=== PATIENT | female | born 1930 | race Caucasian/White ===

== ENCOUNTER 2017-03-26 15:38 | Emergency (ER) | payer MEDICARE, MEDICAID ==
--- NOTE | 2017-03-26 15:40 | EDM.PDOC ---
ED HPI GENERAL MEDICAL PROBLEM - General Chief Complaint: Neurological Problem Stated Complaint: POSS STROKE, HEART ATTACK, [id number] Time Seen by Provider: 03/26/17 15:39 Source of Information: Reports: Patient, Family, RN, RN Notes Reviewed History Limitations: Reports: Altered Mental Status - History of Present Illness INITIAL COMMENTS - FREE TEXT/NARRATIVE: Arrives by POV with onset of chest pain as she was riding in the car with her travelling from their home in [place] to an event in [place] when patient developed chest pain with a headache and generalized weakness. Describes the pain as a pressure. Rates pain 6/10. Nothing makes the pain better or worse. Pain radiates to the bilateral neck and left shoulder. Admits to mild nausea and slight shortness of breath. Denies edema, rapid heart rate or palpations. Quality: Reports: Ache Severity: Severe Improves with: Reports: None Worsens with: Reports: None Associated Symptoms: Reports: No Other Symptoms - Related Data Allergies Allergy/AdvReac Type Severity Reaction Status Date / Time codeine AdvReac Mild Vomiting Verified 03/26/17 16:57 oxycodone AdvReac Mild Vomiting Verified 03/26/17 16:57 Penicillins AdvReac Mild Vomiting Verified 03/26/17 16:57 Home Meds: Home Meds . [Unable to Verify Home Med List] 03/26/17 [History] Past Medical History Cardiovascular History: Reports: CAD, [place] Neurological History: Reports: CVA - Past Surgical History Cardiovascular Surgical History: Reports: Carotid Stents ED ROS GENERAL - Review of Systems Review Of Systems: ROS reveals no pertinent complaints other than HPI. ED EXAM, GENERAL - Physical Exam Exam: See Below Exam Limited By: No Limitations General Appearance: Other (elderly, chronically ill appearing.) Eye Exam: Bilateral Eye: Normal Inspection Ears: Normal External Exam, Normal Canal, Hearing Grossly Normal, Normal TMs Nose: Normal Inspection, Normal Mucosa, No Blood Throat/Mouth: Normal Inspection, Normal Lips, Normal Teeth, Normal Gums, Normal Oropharynx, Normal Voice, No Airway Compromise Head: Atraumatic, Normocephalic Neck: Normal Inspection, Supple, Non-Tender, Full Range of Motion Respiratory/Chest: No Respiratory Distress, Lungs Clear, Normal Breath Sounds, No Accessory Muscle Use, Chest Non-Tender Cardiovascular: Normal Peripheral Pulses, Regular Rate, Rhythm, No Edema, No Gallop, No JVD, No Murmur, No Rub GI/Abdominal: Normal Bowel Sounds, Soft, Non-Tender, No Organomegaly, No Distention, No Abnormal Bruit, No Mass (Female) Exam: Deferred Rectal (Female) Exam: Deferred Back Exam: Normal Inspection, Full Range of Motion, NT Extremities: Normal Inspection, Normal Range of Motion, Non-Tender, Normal Capillary Refill, No Pedal Edema Neurological: No Motor/Sensory Deficits, Other (generalized weakness.) Psychiatric: Normal Affect, Normal Mood Skin Exam: Warm, Dry, Intact, Normal Color, No Rash EKG INTERPRETATION EKG Date: 03/26/17 Time: 15:56 Rhythm: Other (sinus rhythm) Rate (Beats/Min): 66 [place]: Normal P-Wave: Present QRS: Other (Q waves in inferior leads ol.) ST-T: Normal QT: Normal Course - Vital Signs Last Recorded V/S: Last Vital Signs Temp 36.1 C 03/26/17 15:38 Pulse 66 03/26/17 15:38 Resp 20 03/26/17 15:38 BP 101/60 03/26/17 15:38 Pulse Ox 94 L 03/26/17 15:38 - Orders/Labs/Meds Labs: Laboratory Tests 03/26/17 03/26/17 03/26/17 Range/Units 15:37 15:57 15:57 WBC 9.9 (5.0-10.0) 10^3/uL RBC 5.08 (4.2-5.4) 10^6/uL Hgb 14.8 (12.0-16.0) g/dL Hct 44.0 (37.0-47.0) % MCV 86.6 (80-100) fL MCH 29.1 (27.0-34.0) pg MCHC 33.6 (33.0-35.0) g/dL Plt Count 220 (150-450) 10^3/uL Neut % (Auto) 58.1 (42.2-75.2) % Lymph % (Auto) 30.7 (20.5-50.1) % [place] % (Auto) 8.5 H (2-8) % Eos % (Auto) 2.3 (1.0-3.0) % Baso % (Auto) 0.4 (0.0-1.0) % PT 10.5 (9.0-12.0) SEC INR 1.0 (0.9-1.2) APTT 22.9 (22.0-34.0) SEC Sodium (135-145) mmol/L Potassium (3.6-5.0) mmol/L Chloride (101-111) mmol/L Carbon Dioxide (21.0-31.0) mmol/L Anion Gap BUN (7-18) mg/dL Creatinine (0.6-1.3) mg/dL Est Cr Clr Drug Dosing mL/min Estimated GFR (MDRD) BUN/Creatinine Ratio Glucose (74-105) mg/dL POC Glucose 148 H (83-110) mg/dl Calcium (8.4-10.2) mg/dl Total Bilirubin (0.2-1.0) mg/dL AST (10-42) IU/L ALT (10-60) IU/L Alkaline Phosphatase (42-121) IU/L Troponin I (0.00-0.02) ng/ml B-Natriuretic Peptide (0-100) pg/ml Total Protein (6.7-8.2) g/dl Albumin (3.2-5.5) g/dl Globulin Albumin/Globulin Ratio Ethyl Alcohol mg/dL 03/26/17 Range/Units 15:57 WBC (5.0-10.0) 10^3/uL RBC (4.2-5.4) 10^6/uL Hgb (12.0-16.0) g/dL Hct (37.0-47.0) % MCV (80-100) fL MCH (27.0-34.0) pg MCHC (33.0-35.0) g/dL Plt Count (150-450) 10^3/uL Neut % (Auto) (42.2-75.2) % Lymph % (Auto) (20.5-50.1) % [place] % (Auto) (2-8) % Eos % (Auto) (1.0-3.0) % Baso % (Auto) (0.0-1.0) % PT (9.0-12.0) SEC INR (0.9-1.2) APTT (22.0-34.0) SEC Sodium 141 (135-145) mmol/L Potassium 3.8 (3.6-5.0) mmol/L Chloride 101 (101-111) mmol/L Carbon Dioxide 29.0 (21.0-31.0) mmol/L Anion Gap 14.8 BUN 22 H (7-18) mg/dL Creatinine 0.8 (0.6-1.3) mg/dL Est Cr Clr Drug Dosing 51.86 mL/min Estimated GFR (MDRD) > 60 BUN/Creatinine Ratio 27.50 Glucose 137 H (74-105) mg/dL POC Glucose (83-110) mg/dl Calcium 10.3 H (8.4-10.2) mg/dl Total Bilirubin 0.6 (0.2-1.0) mg/dL AST 19 (10-42) IU/L ALT 13 (10-60) IU/L Alkaline Phosphatase 53 (42-121) IU/L Troponin I 0.15 H* (0.00-0.02) ng/ml B-Natriuretic Peptide 76 (0-100) pg/ml Total Protein 7.4 (6.7-8.2) g/dl Albumin 4.1 (3.2-5.5) g/dl Globulin 3.3 Albumin/Globulin Ratio 1.24 Ethyl Alcohol < 5 mg/dL Meds: Medications Discontinued Medications Generic Name Dose Route Start Last Admin Trade Name Freq PRN Reason Stop Dose Admin Aspirin 324 mg 03/26/17 16:32 03/26/17 16:46 Aspirin PO 03/26/17 16:33 324 mg ONETIME ONE Administration Heparin Sodium (Porcine) 5,000 units 03/26/17 16:32 03/26/17 16:47 Heparin Sodium IVPUSH 03/26/17 16:33 5,000 units ONETIME ONE Administration Heparin Sodium/Dextrose 25,000 units in 500 mls @ 16.329 mls/hr 03/26/17 16: 45 03/26/17 16:53 Heparin 25,000 Units In D5w 500 Ml IV 12 units/kg/hr TITRATE ALEXANDER 16.329 mls/hr Protocol Administration 12 UNITS/KG/HR Sodium Chloride 10 ml 03/26/17 15:41 03/26/17 16:51 Saline Flush FLUSH 10 ml ASDIRECTED PRN Administration Keep Vein Open - Radiology Interpretation Free Text/Narrative:: Chest x-ray: Per rad report shows no acute cardiopulmonary abnormality. 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 No intracranial mass, hydrocephalus or bleed. - Re-Assessments/Exams Free Text/Narrative Re-Assessment/Exam: 03/26/17 16:31 EKG faxed to Kamilah Urrutia at 1631/ Departure - Departure Time of Disposition: 16:38 Disposition: DC/Tfer to Acute Hospital 02 Condition: Critical Clinical Impression: Non-STEMI (non-ST elevated myocardial infarction) - Discharge Information Referrals: PCP,Not In Area [Primary Care Provider] - Forms: ED Department Discharge, Interfacility Transfer MARIE
[2017-03-26] MEDS ORDERED: Sodium Chloride 0.9% 10 ML Syringe FLUSH PRN (15:41)
--- NOTE | 2017-03-26 15:51 | CT ---
Clinical history: 86-year-old female suddenly confused (unable to speak). No known head trauma. Scan technique: Volume acquisition of data emergency unenhanced CT scan of the head and brain obtain ed with patient lying supine on the Siemens multi slice scanner [facility]. All data archived in the PACS system for storage, (bone/brain windows). Interpretation: Abnormal. 1. Extensive area of old ischemic infarct (encephalomalacia) involving the occipital lobe posteriorl y right cerebral hemisphere. 2. Midline pineal and symmetric choroid plexus calcifications this patient with generalized cerebral and cerebellar atrophy. 3. No sign of hydrocephalus, supratentorial/posterior fossa mass lesion, other focal areas of ischem ic infarct, or acute intracerebral/intraventricular/subarachnoid bleed. No abnormal extracerebral/in tracranial epidural or subdural hematoma. 4. Scattered microvascular ischemic changes involving the periventricular white matter. 5. Uniformly thick bony calvarium and symmetric clear pneumatization of the mastoid/paranasal sinuse s. CONCLUSION: Generalized atrophy and.... 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 No intracranial mass, hydrocephalus or bleed.
--- NOTE | 2017-03-26 15:58 | CR ---
Clinical history: 86-year-old female chest pain. Interpretation (AP portable chest): Less than optimal inspiratory effort crowding the lung markings in the bases. Normal cardiac silhouette without cephalization of flow, signs of alveolar edema or dependent pleura l effusion. Surgical darts right humeral head, ectasia of the aorta, and chronic arthritic changes of the spine. No lung mass, hilar lymphadenopathy or focal lobar pneumonia. No atelectasis/collapse. No pneumothorax. CONCLUSION: No acute cardiopulmonary abnormality.
[2017-03-26 16:18] VITALS: BP 101/60
[2017-03-26 16:24] LABS: CHLORIDE,CL 101 mmol/L (101-111); SODIUM,NA 141 mmol/L (135-145)
[2017-03-26] MEDS ORDERED: Heparin Sodium 5,000 Units/ML Vial IVPUSH ONE (16:32)
[2017-03-26] MEDS ORDERED: Aspirin 81 MG Tab.Chew PO ONE (16:32)
[2017-03-26] MEDS ORDERED: Heparin Sodium/D5W 25,000 UNITS/500 ML BAG IV SCH (16:45)
--- NOTE | 2017-03-28 13:47 | EKG ---
03/26/2017- NESTOR SAWYER - EKG per my reading shows sinus rhythm at the rate of 66 with inferior Q waves. [facility] /[id number]
== END 2017-03-26 17:13 ==
LOC: DL.ED 15:38
DX: I21.4 Non-ST elevation (NSTEMI) myocardial infarction (principal); I25.10 Atherosclerotic heart disease of native coronary artery without angina pectoris; I25.2 Old myocardial infarction; Z86.73 Personal history of transient ischemic attack (TIA), and cerebral infarction without residual deficits; Z95.5 Presence of coronary angioplasty implant and graft; Z88.5 Allergy status to narcotic agent; Z88.6 Allergy status to analgesic agent; Z88.0 Allergy status to penicillin
CPT/HCPCS: 36415; 70450; 71010; 80053; 82962; 83880; 84484; 85025; 85610; 85730; 93005; 93010; 96374; 99284; 99285; A9270; G0480; J1644; J7050